=== PATIENT | female | born 1995 | race Caucasian/White ===

== ENCOUNTER 2022-10-25 07:50 | Emergency (ER) | payer OTHER ==
--- NOTE | 2022-10-25 07:52 | ERPHSYRPT ---
- History of Present Illness Time Seen by Provider: 10/25/22 07:51 Historian: patient Exam Limitations: no limitations Physician History: This is a 27-year-old white female who is approximately 5 weeks and presents with intermittent right upper quadrant, epigastric abdominal pain with radiation into the back after food consumption. Patient became concerned because at approximately 1030 last evening the pain that she was experiencing was more intense and was more constant than typical. Now, at the time of this evaluation, the patient states the pain is not too bad. The nausea is not too bad. Patient is breast-feeding and does not want any narcotics, pain medicine, or antiemetics at this time. She denies chest pain. She denies shortness of breath. She has not had a fever. She has nausea but no vomiting. She has not had diarrhea. Timing/Duration: week(s) (A few weeks), intermittent, worse Activities at Onset: none Quality: sharpness, stabbing Abdominal Pain Onset Location: RUQ, epigastric Pain Radiation: back (Right back) Severity of Pain-Max: moderate Severity of Pain-Current: mild Modifying Factors: Improves With: nothing Associated Symptoms: nausea, No chest pain, No fever/chills, No shortness of breath, No vomiting Previous symptoms: same symptoms as today, no recent treatment Allergies/Adverse Reactions: No Known Drug Allergies Allergy (Verified 10/25/22 07:57) Home Medications: Pnv No.95/Ferrous Fum/Folic AC [ Vitamin Tablet] 1 tab PO DAILY 10/25/22 [History] Travel Risk - International Travel Have you traveled outside of the country in past 3 weeks: No - Coronavirus Screening Are you exhibiting any of the following symptoms?: No Close contact with a COVID-19 positive Pt in past 14-21 Days: No - Review of Systems Constitutional: No Symptoms Eyes: No Symptoms Ears, Nose, & Throat: No Symptoms Respiratory: No Symptoms Cardiac: No Symptoms Abdominal/Gastrointestinal: Abdominal Pain, Nausea, No Vomiting, No Diarrhea, No Constipation Genitourinary Symptoms: No Symptoms Musculoskeletal: Back Pain Skin: No Symptoms Neurological: No Symptoms Psychological: No Symptoms Endocrine: No Symptoms Hematologic/Lymphatic: No Symptoms Immunological/Allergic: No Symptoms All Other Systems: Reviewed and Negative - Past Medical History Pertinent Past Medical History: Yes - Past Surgical History Past Surgical History: Yes - Nursing Vital Signs Nursing Vital Signs: Initial Vital Signs Temperature 97 F 10/25/22 07:58 Pulse Rate 78 10/25/22 07:58 Respiratory Rate 17 10/25/22 07:58 Blood Pressure 125/98 10/25/22 07:58 O2 Sat by Pulse Oximetry 98 10/25/22 07:58 Pain Scale Pain Intensity 6 - Physical Exam General Appearance: no apparent distress, alert, anxiety Eye Exam: PERRL/EOMI, eyes nml inspection Ears, Nose, Throat Exam: normal ENT inspection, moist mucous membranes Neck Exam: normal inspection, non-tender, supple, full range of motion Respiratory Exam: normal breath sounds, lungs clear, No chest tenderness, No respiratory distress Cardiovascular Exam: regular rate/rhythm, normal heart sounds, normal peripheral pulses Gastrointestinal/Abdomen Exam: soft, normal bowel sounds, tenderness (Mild right upper quadrant and epigastric), guarding (Mild right upper quadrant to pa lpation), No rebound Pelvic Exam: not done Rectal Exam: not done Back Exam: normal inspection, normal range of motion, No CVA tenderness, No vertebral tenderness Extremity Exam: normal inspection, normal range of motion, pelvis stable Neurologic Exam: alert, oriented x 3, cooperative, 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, normal mood/affect, nml cerebellar function, nml station & gait, sensation nml Skin Exam: normal color, warm, dry Lymphatic Exam: No adenopathy SpO2 Interpretation: normal O2 Delivery: Room Air - Course Nursing assessment & vital signs reviewed: Yes Ordered Tests: Active Orders 24 hr Category Date Time Status IV Insertion STAT Care 10/25/22 08:14 Active ABDOMEN AND PELVIS W/0 CONTRAS [CT] Stat Exams 10/25/22 08:14 Completed GALLBLADDER [US] Stat Exams 10/25/22 08:55 Completed AMYLASE Stat Lab 10/25/22 08:15 Completed CBC W DIFF Stat Lab 10/25/22 08:15 Completed CMP Stat Lab 10/25/22 08:15 Completed HCG QUALITATIVE,SERUM Stat Lab 10/25/22 08:15 Completed LIPASE Stat Lab 10/25/22 08:15 Completed UA W/RFX UR CULTURE Stat Lab 10/25/22 08:17 Completed Medication Summary Discontinued Medications Generic Name Dose Route Start Last Admin Trade Name Freq PRN Reason Stop Dose Admin Sodium Chloride 1,000 mls @ 999 mls/hr 10/25/22 08:14 10/25/22 09:37 Sodium Chloride 0.9% 1000 Ml IV 10/25/22 09:14 Infused .Q1H1M STA Infusion Sodium Chloride Confirm 10/25/22 08:18 Sodium Chloride 0.9% 1000 Ml Administered 10/25/22 08:19 Dose 1,000 mls @ .ROUTE .[facility] Lab/Rad Data: Laboratory Result Diagrams 10/25/22 08:15 10/25/22 08:15 Laboratory Results 10/25/22 10/25/22 10/25/22 Range/Units 08:17 08:15 08:15 WBC (4.0-10.5) x10^3/uL RBC (4.1-5.4) x10^6/uL Hgb (12.0-16.0) g/dL Hct (35-47) % MCV (78-100) fL MCH (26-32) pg MCHC (32-36) g/dL RDW (11.5-14.0) % Plt Count (150-450) x10^3/uL MPV (7.5-11.0) fL Gran % (36.0-66.0) % Immature Gran % (Auto) (0.00-0.4) % Nucleat RBC Rel Count (0.00-0.1) % Eos # (Auto) (0-0.5) x10^3/uL Immature Gran # (Auto) (0.00-0.03) x10^3u/L Absolute Lymphs (auto) (1.0-4.6) x10^3/uL Absolute Monos (auto) (0.0-1.3) x10^3/uL Absolute Nucleated RBC (0.00-0.01) x10^3u/L Lymphocytes % (24.0-44.0) % Monocytes % (0.0-12.0) % Eosinophils % (0.00-5.0) % Basophils % (0.0-0.4) % Absolute Granulocytes (1.4-6.9) x10^3/uL Basophils # (0-0.4) x10^3/uL Sodium 141 (137-145) mmol/L Potassium 3.9 (3.5-5.1) mmol/L Chloride 107 (98-107) mmol/L Carbon Dioxide 27 (22-30) mmol/L Anion Gap 10.9 (5-15) MEQ/L BUN 10 (7-17) mg/dL Creatinine 0.84 (0.52-1.04) mg/dL Estimated GFR > 60.0 ML/MIN Glucose 99 (74-106) mg/dL Calcium 9.2 (8.4-10.2) mg/dL Total Bilirubin 1.60 H (0.2-1.3) mg/dL AST 964 H (14-36) U/L ALT 608 H (0-35) U/L Alkaline Phosphatase 408 H (38-126) U/L Serum Total Protein 7.2 (6.3-8.2) g/dL Albumin 4.3 (3.5-5.0) g/dL Amylase 101 (30-110) U/L Lipase 299 (23-300) U/L Serum , Qual NEGATIVE (Negative) Urine Color Dark Yellow A (Yellow) Urine Appearance Clear (Clear) Urine pH 6.5 (4.6-8.0) Ur Specific [place] 1.015 (1.005-1.030) Urine Protein Negative (Negative) Urine Glucose (UA) Negative (Negative) mg/dL Urine Ketones Negative (Negative) Urine Blood Negative (Negative) Urine Nitrite Negative (Negative) Urine Bilirubin Negative (Negative) Urine Urobilinogen 1.0 A (0.2) mg/dL Ur Leukocyte Esterase Small A (Negative) U Hyaline Cast (Auto) NONE SEEN (0-2) /LPF Urine Microscopic RBC 0-2 (0-5) /HPF Urine Microscopic WBC 0-2 (0-5) /HPF Ur Epithelial Cells None Seen (None Seen) /HPF Urine Bacteria None Seen (None Seen) /HPF Urine Culture Reflexed NO (NO) 10/25/22 Range/Units 08:15 WBC 7.1 (4.0-10.5) x10^3/uL RBC 4.81 (4.1-5.4) x10^6/uL Hgb 13.7 (12.0-16.0) g/dL Hct 42.2 (35-47) % MCV 87.7 (78-100) fL MCH 28.5 (26-32) pg MCHC 32.5 (32-36) g/dL RDW 11.9 (11.5-14.0) % Plt Count 226 (150-450) x10^3/uL MPV 10.1 (7.5-11.0) fL Gran % 69.0 H (36.0-66.0) % Immature Gran % (Auto) 0.3 (0.00-0.4) % Nucleat RBC Rel Count 0.0 (0.00-0.1) % Eos # (Auto) 0.12 (0-0.5) x10^3/uL Immature Gran # (Auto) 0.02 (0.00-0.03) x10^3u/L Absolute Lymphs (auto) 1.47 (1.0-4.6) x10^3/uL Absolute Monos (auto) 0.55 (0.0-1.3) x10^3/uL Absolute Nucleated RBC 0.00 (0.00-0.01) x10^3u/L Lymphocytes % 20.9 L (24.0-44.0) % Monocytes % 7.8 (0.0-12.0) % Eosinophils % 1.7 (0.00-5.0) % Basophils % 0.3 (0.0-0.4) % Absolute Granulocytes 4.87 (1.4-6.9) x10^3/uL Basophils # 0.02 (0-0.4) x10^3/uL Sodium (137-145) mmol/L Potassium (3.5-5.1) mmol/L Chloride (98-107) mmol/L Carbon Dioxide (22-30) mmol/L Anion Gap (5-15) MEQ/L BUN (7-17) mg/dL Creatinine (0.52-1.04) mg/dL Estimated GFR ML/MIN Glucose (74-106) mg/dL Calcium (8.4-10.2) mg/dL Total Bilirubin (0.2-1.3) mg/dL AST (14-36) U/L ALT (0-35) U/L Alkaline Phosphatase (38-126) U/L Serum Total Protein (6.3-8.2) g/dL Albumin (3.5-5.0) g/dL Amylase (30-110) U/L Lipase (23-300) U/L Serum , Qual (Negative) Urine Color (Yellow) Urine Appearance (Clear) Urine pH (4.6-8.0) Ur Specific [place] (1.005-1.030) Urine Protein (Negative) Urine Glucose (UA) (Negative) mg/dL Urine Ketones (Negative) Urine Blood (Negative) Urine Nitrite (Negative) Urine Bilirubin (Negative) Urine Urobilinogen (0.2) mg/dL Ur Leukocyte Esterase (Negative) U Hyaline Cast (Auto) (0-2) /LPF Urine Microscopic RBC (0-5) /HPF Urine Microscopic WBC (0-5) /HPF Ur Epithelial Cells (None Seen) /HPF Urine Bacteria (None Seen) /HPF Urine Culture Reflexed (NO) - Progress Progress: improved, pain not gone completely, re-examined Progress Note: 10/25/22 09:56 The CAT scan of the abdomen pelvis shows mildly distended gallbladder without gallstones or biliary tree distention. There is a nonobstructive normal appendix. Gallbladder ultrasound shows multiple gallstones that are small within the gallbladder. There is no evidence of common bile duct stones or dilation of the biliary tree. There is no pericholecystic fluid. There is no gallbladder wall thickening. This patient's medical issue is of moderate complexity. The work-up performed was based on the past medical history, review of the patient's medication and allergy list, history of present illness and physical findings on examination. The work-up performed was placement of intravenous line and infusion of normal saline solution. Patient refused antiemetics and pain medicine of any kind. We also obtained a urinalysis, test, CBC, CMP, amylase and lipase labs. We performed a CT scan of the abdomen pelvis as well as a gallbladder ultrasound. I reviewed the results of the entire work-up. Patient has elevated liver function test. She also has evidence of cholelithiasis. Her diagnosis is symptomatic cholelithiasis with elevated liver function test. Her pancreas enzymes are normal. Patient needs referral back to her primary care physician ultimately to a general surgeon. The discharge plan is to discharge her to home, place her on a clear liquid diet and avoid fatty greasy spicy foods. She may use Tylenol and ibuprofen for pain control. Counseled pt/family regarding: lab results, diagnosis, need for follow-up, rad results Medical Desision Making - Discussion of managment Reviewed:: Test results, Need for additional workup Agreed on:: Treatment plan, need for follow-up - Diagnostic Testing Diagnostic test were ordered, analyzed, and reviewed by me: Yes Radiological Interpretation: Reviewed by me, Teleradiologist Report - Risk of complications The pt has a mod risk of morbidity or mortality based on: Need for major surgery in otherwise healthy patient (Nonemergent) - Departure Departure Disposition: Home Clinical Impression: Symptomatic cholelithiasis, Elevated liver function tests Condition: Stable Critical Care Time: No Additional Instructions: Avoid fatty greasy spicy foods. Clear liquid diet. Call your primary care physician or general surgeon of your choice to obtain an appointment for further evaluation management. May use Tylenol and ibuprofen for pain control. Prescriptions: Ondansetron ODT 4 MG [Zofran Odt 4 mg] 4 mg PO Q6H PRN PRN #10 tablet PRN Reason: Vomiting
[2022-10-25] MEDS ORDERED: Sodium Chloride 0.9% 1000 ML 1,000 ML IV STA (08:14)
[2022-10-25] MEDS ORDERED: Sodium Chloride 0.9% 1000 ML 1,000 ML ONE (08:18)
[2022-10-25 08:26] LABS: Absolute Neutrophil Ct (ANC) 4.87 x10^3/uL (1.4-6.9); BASOPHIL % 0.3 % (0.0-0.4); Basophil (Absolute #) 0.02 x10^3/uL (0-0.4); Eosinophil % 1.7 % (0.00-5.0); Eosinophil (Absolute #) 0.12 x10^3/uL (0-0.5); Hematocrit 42.2 % (35-47); Hemoglobin 13.7 g/dL (12.0-16.0); IMMATURE GRAN # 0.02 x10^3u/L (0.00-0.03); IMMATURE GRAN % 0.3 % (0.00-0.4); Lymphocyte (Absolute #) 1.47 x10^3/uL (1.0-4.6); Lymphocytes % 20.9 % (24.0-44.0); Mean Cell Volume 87.7 fL (78-100); Mean Corpuscular Hemoglobin 28.5 pg (26-32); Mean Corpuscular Hgb Concent. 32.5 g/dL (32-36); Mean Platelet Volume 10.1 fL (7.5-11.0); Monocyte (Absolute #) 0.55 x10^3/uL (0.0-1.3); Monocytes % 7.8 % (0.0-12.0); Platelet Count 226 x10^3/uL (150-450); Red Blood Count 4.81 x10^6/uL (4.1-5.4); Red Cell Distribution Width 11.9 % (11.5-14.0); White Blood Count 7.1 x10^3/uL (4.0-10.5)
[2022-10-25 08:38] LABS: ALBUMIN 4.3 g/dL (3.5-5.0); ALKALINE PHOSPHATASE 408 U/L (38-126); AMYLASE 101 U/L (30-110); ANION GAP 10.9 MEQ/L (5-15); BLOOD UREA NITROGEN 10 mg/dL (7-17); CHLORIDE 107 mmol/L (98-107); Calcium 9.2 mg/dL (8.4-10.2); Carbon Dioxide 27 mmol/L (22-30); Creatinine 1 0.84 mg/dL (0.52-1.04); EST GLOMERULAR FILTRATION RATE > 60.0 ML/MIN; Glucose 99 mg/dL (74-106); LIPASE 299 U/L (23-300); Potassium 3.9 mmol/L (3.5-5.1); SGPT/ALT 608 U/L (0-35); SODIUM 141 mmol/L (137-145); Total Protein 7.2 g/dL (6.3-8.2)
[2022-10-25 08:45] LABS: SGOT/AST 964 U/L (14-36)
[2022-10-25 08:50] LABS: Appearance Clear (Clear); Bacteria None Seen /HPF (None Seen); Bilirubin Negative (Negative); Blood Negative (Negative); Epithelial Cells None Seen /HPF (None Seen); Glucose, Urine Negative (Negative); Hyaline Casts NONE SEEN /LPF (0-2); Ketones Negative (Negative); Leukocyte Esterase Small (Negative); Nitrite Negative (Negative); Ph 6.5 (4.6-8.0); Protein,Urine Dip Negative (Negative); RBC 0-2 /HPF (0-5); Specific Gravity 1.015 (1.005-1.030); WBC 0-2 /HPF (0-5)
[2022-10-25 08:54] LABS: ADD URINE CULTURE? NO (NO)
--- NOTE | 2022-10-25 09:06 | XRAY ---
Indication: Epigastric pain. Multiple contiguous axial images obtained through the abdomen and pelvis without contrast. Comparison: None Lung bases clear. Heart not enlarged. Stomach is distended with food. Gallbladder moderately distended without gallstones or biliary distention. Noncontrasted stomach and bowel loops appear nonobstructed with normal appendix. Mild diffuse scattered colonic fecal debris throughout. Nonobstructing left renal punctate calculus. No free fluid/air. Remaining liver, gallbladder, pancreas, spleen, adrenal glands, kidneys, ureters, bladder, uterus, and aorta are unremarkable for noncontrast exam. Osseous structures intact. Impression: 1. Mild distended gallbladder, abnormal in this postprandial patient. 2. Nonobstructing left renal punctate calculus.
[2022-10-25 09:14] VITALS: BP 127/89
--- NOTE | 2022-10-25 09:31 | XRAY ---
Indication: Pain. Elevated liver enzymes. Two-dimensional gallbladder sonogram performed. Comparison: None Gallbladder mildly distended with multiple small calculi/gravel. No abnormal gallbladder wall thickening or pericholecystic fluid. Common bile duct measures 5.3 mm. Remaining visualized liver, pancreas, and right kidney are sonographically normal. Right kidney measures 10.6 cm in length and sonographically unremarkable. No free fluid. Impression: Distended gallbladder with cholelithiasis. Negative for acute cholecystitis or biliary distention. Rule out chronic cholecystitis.
[2022-10-25 10:36] VITALS: PULSE 75; O2SAT 97
== END 2022-10-25 10:52 | disposition home or self-care (01) ==
LOC: ED 07:50
DX: K80.20 Calculus of gallbladder without cholecystitis without obstruction (principal); R79.89 Other specified abnormal findings of blood chemistry; R10.11 Right upper quadrant pain; R10.13 Epigastric pain; R11.0 Nausea
CPT/HCPCS: 36000; 36415; 74176; 76705; 80053; 81001; 82150; 83690; 84703; 85025; 96360; 99284